=== PATIENT | female | born 1985 | race Caucasian/White ===

== ENCOUNTER 2024-10-15 21:22 | Emergency (ER) | payer SELFPAY ==
[~2024-10-15] VITALS: Ht 154.9 cm; Wt 74.8 kg
[2024-10-15] MEDS ORDERED: ONDANSETRON 4 MG TAB.RAPDIS ONE (22:09)
[2024-10-15] MEDS ORDERED: MECLIZINE HCL 12.5 MG TABLET ONE (22:35)
[2024-10-15] MEDS ORDERED: DIAZEPAM 5 MG TABLET ONE (22:35)
[2024-10-15] MEDS ORDERED: METOCLOPRAMIDE HCL 10 MG/2 ML VIAL ONE (22:35)
[2024-10-15 22:48] LABS: BASOPHILS % (AUTO) 0.4 % (0.0-2.0); EOSINOPHILS # (AUTO) 0.1 K/uL (0.0-0.7); EOSINOPHILS % (AUTO) 1.5 % (0.0-6.0); HEMATOCRIT 38 % (33-45); HEMOGLOBIN 12.9 g/dL (11.5-14.8); LYMPHOCYTES # (AUTO) 0.8 K/uL (0.8-4.8); LYMPHOCYTES % (AUTO) 13.5 % (20.0-44.0); MEAN CORPUSCULAR HEMOGLOBIN 32 PG (26.0-33.0); MEAN CORPUSCULAR HGB CONC 34 g/dl (31.0-36.0); MEAN CORPUSCULAR VOLUME 95 fL (82-100); MONOCYTES # (AUTO) 0.3 K/uL (0.1-1.30); MONOCYTES % (AUTO) 5.7 % (2.0-12.0); NEUTROPHILS # (AUTO) 4.8 K/uL (1.8-8.9); NEUTROPHILS % (AUTO) 78.9 % (43.0-81.0); PLATELET COUNT (AUTO) 201 K/uL (150-450); RED BLOOD CELL COUNT(AUTO) 3.99 MIL/uL (4.0-5.2); RED CELL DISTRIBUTION WIDTH 12.6 % (11.5-15.0)
[2024-10-15] MEDS: ONDANSETRON 4 MG TAB.RAPDIS SL ONE (22:48)
[2024-10-15] MEDS: IV NS 0.9% 1,000 ML BAG IV ONE (22:48)
[2024-10-15] MEDS: METOCLOPRAMIDE HCL 10 MG/2 ML VIAL IV ONE (22:49)
[2024-10-15] MEDS: MECLIZINE HCL 12.5 MG TABLET PO ONE (22:50)
[2024-10-15] MEDS: DIAZEPAM 5 MG TABLET PO ONE (22:51)
[2024-10-15 22:55] LABS: CALCIUM, SERUM 8.6 mg/dL (8.5-10.1); CREATININE 0.7 mg/dL (0.6-1.3); POTASSIUM 4.1 mmol/L (3.5-5.1)
[2024-10-15 23:03] LABS: PREGNANCY TEST URINE QUAL NEGATIVE (NEGATIVE)
[2024-10-15] MEDS ORDERED: MECL-159 PO (23:46)
[2024-10-15] MEDS ORDERED: METO-295 PO (23:49)
[2024-10-16 00:56] VITALS: BP 115/64; TEMP 98.5; O2SAT 99
== END 2024-10-16 00:56 | disposition home or self-care (01) ==
LOC: ER 21:27
DX: H81.399 Other peripheral vertigo, unspecified ear (principal); R11.0 Nausea; Z88.5 Allergy status to narcotic agent
CPT/HCPCS: 99284; 96374; 96361; 93005; 85025; 80048; 83735; 84703; 36415; J8597; J2765; J7030; Q0162